=== PATIENT | male | born 1985 | race Caucasian/White ===

== ENCOUNTER 2022-04-17 11:55 | Emergency (ER) | payer OTHER ==
[2022-04-17 12:12] VITALS: BP 153/79; PULSE 80; TEMP 98.2; BMI 29.3
[2022-04-17] MEDS ORDERED: IBUPROFEN 600 MG TABLET (FP) PO ONE ×2 (12:12→12:15)
== END 2022-04-17 12:38 | disposition home or self-care (01) ==
LOC: FER 11:55
DX: H60.392 Other infective otitis externa, left ear (principal)
CPT/HCPCS: 99283-25